=== PATIENT | male | born 1940 | race African-American/Black ===

== ENCOUNTER 2016-09-13 11:53 | Observation (INO) | payer MEDICARE ==
[~2016-09-13] VITALS: Ht 182.9 cm; Wt 83.0 kg
[~2016-09-13 11:53] MED LIST: ATIVAN1 MG PO; AVELOX; BENADRYL25 M2 PO; CEPHALEXIN500 M1 PO; CIPRO 500MG TA500 MG PO; DILTIAZEM CD300 MG PO; FLOMAX; FLOMAX 0.40.4 MG/CAP PO; HCTZ 25MG TAB25 MG PO; LISINOPRIL40 MG PO; LORTAB 5/500 501 TAB PO; NORCO 325 MG-51 TAB PO; NORVASC 10MG10 MG PO; PREDNISONE20 MG PO; PRINIVIL20 MG PO; SERTRALINE PO; ULTRAM 50MG TAB50 MG PO; ZANTAC 150MG T150 MG PO; ZOLOFT25 MG PO
[2016-09-13 12:32] LABS: BASO # 0.1 (0.0-0.2); BASO % 0.9 % (0.0-2.0); EOS # 0.3 (0.0-0.7); GRAN % 45.3 % (42.2-75.2); HEMATOCRIT 38.3 % (42.0-52.0); HEMOGLOBIN 12.8 g/dl (13.5-18.0); LYMPH # 2.7 (1.2-3.4); LYMPH % 41.1 % (20.0-51.0); MEAN CELL VOLUME 91 fl (80.0-100.0); MEAN CORPUSCULAR HEMOGLOBIN 31 pg (27.0-31.0); MEAN CORPUSCULAR HGB CONC 33 g/dl (33.0-37.0); MONO # 0.6 (0.1-0.6); MONO % 8.7 % (1.7-9.3); PLATELET COUNT 326 K/mm3 (130-400); RED BLOOD COUNT 4.19 M/mm3 (4.20-5.60); REDCELL DISTRIBUTION WIDTH-CV 12.8 % (11.5-14.5); WHITE BLOOD COUNT 6.7 K/mm3 (4.8-10.8)
[2016-09-13 12:40] LABS: PROTHROMBIN TIME 11.3 SECONDS (9.7-12.8)
[2016-09-13] MEDS ORDERED: NORVASC 10MG10 MG PO (12:47)
[2016-09-13] MEDS ORDERED: HCTZ 25MG TAB25 MG PO (12:47)
[2016-09-13] MEDS ORDERED: TYLENOL W/COD1 UDTAB PO (12:48)
[2016-09-13 12:52] LABS: ADJUSTED CALCIUM 10.1 mg/dL (8.4-10.2); ALBUMIN 4.3 gm/dL (3.5-5.0); BILIRUBIN,TOTAL 0.7 mg/dL (0.0-1.0); CALCIUM 10.3 mg/dL (8.4-10.2); CREATININE, serum 1.6 mg/dL (0.66-1.25); POTASSIUM 3.9 mmol/L (3.4-5.0); TOTAL PROTEIN 7.8 gm/dL (6.4-8.2)
[2016-09-13 13:04] LABS: TROPONIN-I 0.012 ng/mL (0.000-0.034)
[2016-09-13 16:32] VITALS: BP 150/80; PULSE 68; TEMP 98.7
[2016-09-13 19:41] VITALS: BP 129/62; PULSE 73; TEMP 98
[2016-09-14] VITALS (9 sets, daily range): BP systolic 102–153; BP diastolic 55–77; PULSE 58–85; TEMP 98–98.2
[2016-09-14 08:12] LABS: CHOLESTEROL 161 mg/dL (120-200); HDL CHOLESTEROL 46 mg/dL; LDL CHOLESTEROL 98 mg/dL; TRIGLYCERIDE 83 mg/dL
[2016-09-14 09:01] LABS: TROPONIN-I < 0.012 ng/mL (0.000-0.034)
[2016-09-14] MEDS ORDERED: ASPIRIN 32325 MG/TAB PO (16:28)
[2016-09-14] MEDS ORDERED: PLAVIX 75MG TAB75 MG PO (16:29)
[2016-09-14] MEDS ORDERED: LIPITOR20 MG PO (16:29)
[2016-09-14] MEDS ORDERED: TOPROL XL 25MG25 MG PO (16:32)
== END 2016-09-14 17:47 | disposition home or self-care (01) ==
LOC: COL.ER 11:53 → MEDICAL 14:33
PROVIDERS: Emergency Medicine; Internal Medicine
DX: R07.9 Chest pain, unspecified (principal); J98.11 Atelectasis; I12.9 Hypertensive chronic kidney disease with stage 1 through stage 4 chronic kidney disease, or unspecified chronic kidney disease; N18.9 Chronic kidney disease, unspecified; Z87.891 Personal history of nicotine dependence
CPT/HCPCS: 99223-AI; A9502; G0378; J1650; J2785; J7030; Q9967

== ENCOUNTER 2016-09-17 07:42 | Day surgery (SDC) | payer MEDICARE ==
[2016-09-17] VITALS (448 sets, daily range): BP systolic 112–156; BP diastolic 74–99; PULSE 54–66; TEMP 97.9–99; O2SAT 77–100
[~2016-09-17] VITALS: Ht 182.9 cm; Wt 83.5 kg
[~2016-09-17 07:42] MED LIST changes: +ASPIRIN 32325 MG/TAB PO; +LIPITOR20 MG PO; +PLAVIX 75MG TAB75 MG PO; +TOPROL XL 25MG25 MG PO; +TYLENOL W/COD1 UDTAB PO
[2016-09-17] MEDS ORDERED: TOPROL XL 25MG25 MG PO (08:30)
[2016-09-17 08:31] LABS: INR 1.1 (0.8-3.0); PROTHROMBIN TIME 11.8 SECONDS (9.7-12.8)
[2016-09-17] MEDS ORDERED: LIPITOR20 MG PO (08:31)
[2016-09-17] MEDS ORDERED: PLAVIX 75MG TAB75 MG PO (08:31)
[2016-09-17] MEDS ORDERED: ASPIRIN 32325 MG/TAB PO (08:32)
[2016-09-17 08:43] LABS: CALCIUM 10.4 mg/dL (8.4-10.2); CREATININE, serum 1.75 mg/dL (0.66-1.25)
[2016-09-17 08:47] LABS: HEMATOCRIT 38.4 % (42.0-52.0); HEMOGLOBIN 12.9 g/dl (13.5-18.0); MEAN CELL VOLUME 91 fl (80.0-100.0); MEAN CORPUSCULAR HEMOGLOBIN 31 pg (27.0-31.0); MEAN CORPUSCULAR HGB CONC 34 g/dl (33.0-37.0); MEAN PLATELET VOLUME 10.2 fl (7.4-10.4); PLATELET COUNT 343 K/mm3 (130-400); RED BLOOD COUNT 4.21 M/mm3 (4.20-5.60); REDCELL DISTRIBUTION WIDTH-CV 12.4 % (11.5-14.5); WHITE BLOOD COUNT 5.7 K/mm3 (4.8-10.8)
[2016-09-18] VITALS (205 sets, daily range): BP systolic 119–137; BP diastolic 71–81; PULSE 68–74; TEMP 98–98.5; O2SAT 87–100
[2016-09-18 06:25] LABS: BASO % 0.5 % (0.0-2.0); EOS # 0.2 (0.0-0.7); EOS % 2.9 % (0-4.0); GRAN % 53.3 % (42.2-75.2); HEMATOCRIT 39.9 % (42.0-52.0); HEMOGLOBIN 13.2 g/dl (13.5-18.0); LYMPH # 1.9 (1.2-3.4); LYMPH % 33.6 % (20.0-51.0); MEAN CELL VOLUME 92 fl (80.0-100.0); MEAN CORPUSCULAR HEMOGLOBIN 31 pg (27.0-31.0); MEAN CORPUSCULAR HGB CONC 33 g/dl (33.0-37.0); MONO # 0.5 (0.1-0.6); MONO % 9.5 % (1.7-9.3); PLATELET COUNT 331 K/mm3 (130-400); RED BLOOD COUNT 4.33 M/mm3 (4.20-5.60); REDCELL DISTRIBUTION WIDTH-CV 12.6 % (11.5-14.5); WHITE BLOOD COUNT 5.6 K/mm3 (4.8-10.8)
[2016-09-18 06:40] LABS: CALCIUM 10.2 mg/dL (8.4-10.2); CREATININE, serum 1.72 mg/dL (0.66-1.25)
[2016-09-18] MEDS ORDERED: ASPIRIN E.C. 8181 MG PO (08:47)
== END 2016-09-18 09:44 | disposition home or self-care (01) ==
LOC: COL.RAD 07:42 → IMCU 11:00 → COL.RAD 09-18 09:44 → IMCU 09-18 09:44
PROVIDERS: Internal Medicine Interventional Cardiology
DX: I25.10 Atherosclerotic heart disease of native coronary artery without angina pectoris (principal); I73.9 Peripheral vascular disease, unspecified; R94.39 Abnormal result of other cardiovascular function study; R07.89 Other chest pain; Z79.82 Long term (current) use of aspirin; Z79.899 Other long term (current) drug therapy; Z79.02 Long term (current) use of antithrombotics/antiplatelets
CPT/HCPCS: OP; C1725; C1760; C1769; C9600; J0583; J2250; J3010; Q9967

== ENCOUNTER 2018-03-07 21:56 | Emergency (ER) | payer MEDICARE ==
[~2018-03-07] VITALS: Ht 172.7 cm; Wt 85.9 kg
[~2018-03-07 21:56] MED LIST changes: +ASPIRIN E.C. 8181 MG PO; +LEXAPRO20 MG PO; +LIPITOR 80MG80 MG PO
[2018-03-07 22:06] VITALS: TEMP 98.4
[2018-03-07 22:52] LABS: BASO % 0.6 % (0.0-2.0); EOS # 0.1 (0.0-0.7); GRAN # 3.4 (1.4-6.5); GRAN % 51.9 % (42.2-75.2); HEMOGLOBIN 11.9 g/dl (13.5-18.0); LYMPH # 1.9 (1.2-3.4); LYMPH % 29.2 % (20.0-51.0); MEAN CELL VOLUME 92 fl (80.0-100.0); MEAN CORPUSCULAR HEMOGLOBIN 31 pg (27.0-31.0); MEAN CORPUSCULAR HGB CONC 34 g/dl (33.0-37.0); MEAN PLATELET VOLUME 9.7 fl (7.4-10.4); MONO % 15.8 % (1.7-9.3); PLATELET COUNT 415 K/mm3 (130-400); RED BLOOD COUNT 3.82 M/mm3 (4.20-5.60); REDCELL DISTRIBUTION WIDTH-CV 12.6 % (11.5-14.5)
[2018-03-07 22:53] LABS: HEMATOCRIT 35.3 % (42.0-52.0)
[2018-03-07 22:55] LABS: PROTHROMBIN TIME 11.7 SECONDS (9.7-12.8)
[2018-03-07 22:58] LABS: PARTIAL THROMBOPLASTIN TIME 39.1 SECONDS (26.0-37.0)
[2018-03-07 23:02] LABS: ALANINE AMINOTRANSFERASE 55 U/L (21-72); ALKALINE PHOSPHATASE 77 U/L (50-136); ANION GAP 11 mmol/L (7-16); AST,SGOT 52 U/L (15-37); BILIRUBIN,TOTAL 0.5 mg/dL (0.0-1.0); BLOOD UREA NITROGEN 24 mg/dL (9-20); C-REACTIVE PROTEIN 6.3 mg/dL (0.0-0.9); CALCIUM 9.8 mg/dL (8.4-10.2); CARBON DIOXIDE 27 mmol/L (22-30); CHLORIDE 101 mmol/L (98-107); CREATININE, serum 1.64 mg/dL (0.66-1.25); GLUCOSE 105 mg/dL (74-106); POTASSIUM 3.9 mmol/L (3.4-5.0); SODIUM 138 mmol/L (137-145); TOTAL PROTEIN 7.6 gm/dL (6.4-8.2)
[2018-03-07] MEDS ORDERED: DOXYCYCLINE 10100 MG PO (23:05)
[2018-03-07 23:14] LABS: TROPONIN-I < 0.012 ng/mL (0.000-0.034)
[2018-03-07 23:53] VITALS: BP 133/93; PULSE 62
== END 2018-03-07 23:50 | disposition home or self-care (01) ==
LOC: COL.ER 21:56
PROVIDERS: Emergency Medicine
DX: M79.661 Pain in right lower leg (principal); L03.115 Cellulitis of right lower limb; R60.0 Localized edema; I25.10 Atherosclerotic heart disease of native coronary artery without angina pectoris; E78.5 Hyperlipidemia, unspecified; I12.9 Hypertensive chronic kidney disease with stage 1 through stage 4 chronic kidney disease, or unspecified chronic kidney disease; N18.9 Chronic kidney disease, unspecified; N40.0 Benign prostatic hyperplasia without lower urinary tract symptoms; Z95.5 Presence of coronary angioplasty implant and graft; Z79.82 Long term (current) use of aspirin
CPT/HCPCS: J1650

== ENCOUNTER → 2018-03-09 | Outpatient (CLI) | payer MEDICARE ==
[~2018-03-09] MED LIST changes: +DOXYCYCLINE 10100 MG PO
== END ==
LOC: COL.VAS 14:00
DX: R60.0 Localized edema (principal)

== ENCOUNTER 2018-04-13 16:38 | Emergency (ER) | payer MEDICARE ==
[~2018-04-13] VITALS: Ht 172.7 cm; Wt 84.5 kg
[~2018-04-13 16:38] MED LIST changes: +AMOXICILLIN 8751 TAB PO
[2018-04-13 16:44] VITALS: BP 115/68; PULSE 73; TEMP 97.6
[2018-04-14] MEDS ORDERED: FLAGYL500 MG PO (10:35)
[2018-04-14] MEDS ORDERED: LEVAQUIN 5500 MG/TA1 PO (10:35)
== END 2018-04-13 18:30 | disposition left against medical advice (07) ==
LOC: COL.ER 16:38
DX: S91.001A Unspecified open wound, right ankle, initial encounter (principal); X58.XXXA Exposure to other specified factors, initial encounter

== ENCOUNTER 2018-04-14 09:30 | Emergency (ER) | payer MEDICARE ==
[~2018-04-14] VITALS: Ht 172.7 cm; Wt 84.5 kg
[2018-04-14 09:38] VITALS: TEMP 97.9
[2018-04-14 10:22] LABS: BASO % 0.7 % (0.0-2.0); EOS # 0.2 (0.0-0.7); EOS % 3.6 % (0-4.0); GRAN % 53.6 % (42.2-75.2); HEMOGLOBIN 11.6 g/dl (13.5-18.0); LYMPH # 1.6 (1.2-3.4); LYMPH % 28.4 % (20.0-51.0); MEAN CELL VOLUME 91 fl (80.0-100.0); MEAN CORPUSCULAR HEMOGLOBIN 30 pg (27.0-31.0); MEAN CORPUSCULAR HGB CONC 33 g/dl (33.0-37.0); MONO # 0.8 (0.1-0.6); MONO % 13.5 % (1.7-9.3); PLATELET COUNT 355 K/mm3 (130-400); RED BLOOD COUNT 3.85 M/mm3 (4.20-5.60)
[2018-04-14 10:24] LABS: HEMATOCRIT 35.1 % (42.0-52.0)
[2018-04-14] MEDS ORDERED: LEVAQUIN 5500 MG/TA1 PO (10:35)
[2018-04-14] MEDS ORDERED: FLAGYL500 MG PO (10:35)
[2018-04-14 10:41] LABS: ALBUMIN 3.7 gm/dL (3.5-5.0); BILIRUBIN,TOTAL 0.3 mg/dL (0.0-1.0); CREATININE, serum 2.03 mg/dL (0.66-1.25); TOTAL PROTEIN 7.1 gm/dL (6.4-8.2)
[2018-04-14 11:38] VITALS: BP 122/64; PULSE 70
== END 2018-04-14 11:39 | disposition home or self-care (01) ==
LOC: COL.ER 09:30
PROVIDERS: Physician Assistant
DX: S91.001A Unspecified open wound, right ankle, initial encounter (principal); N40.0 Benign prostatic hyperplasia without lower urinary tract symptoms; I12.9 Hypertensive chronic kidney disease with stage 1 through stage 4 chronic kidney disease, or unspecified chronic kidney disease; N18.9 Chronic kidney disease, unspecified; Z98.890 Other specified postprocedural states; Z79.82 Long term (current) use of aspirin; Z79.02 Long term (current) use of antithrombotics/antiplatelets
CPT/HCPCS: J7030

== ENCOUNTER → 2018-05-10 | Outpatient (CLI) | payer MEDICARE ==
[~2018-05-10] MED LIST changes: +FLAGYL500 MG PO; +LEVAQUIN 5500 MG/TA1 PO
== END ==
LOC: COL.RAD 13:03
DX: L03.90 Cellulitis, unspecified (principal); I83.013 Varicose veins of right lower extremity with ulcer of ankle

== ENCOUNTER → 2018-05-22 | Outpatient (CLI) | payer MEDICARE | LOC: ZCOL.LAB 14:30 | DX: I83.013 Varicose veins of right lower extremity with ulcer of ankle (principal) ==

== ENCOUNTER → 2019-02-19 | Outpatient (CLI) | payer MEDICARE | LOC: COL.RAD 10:30 | DX: M51.16 Intervertebral disc disorders with radiculopathy, lumbar region (principal); M47.26 Other spondylosis with radiculopathy, lumbar region; M43.16 Spondylolisthesis, lumbar region ==

== ENCOUNTER → 2019-03-28 | Outpatient (CLI) | payer MEDICARE | LOC: MHCPAIN 08:50 | DX: G89.29 Other chronic pain (principal); M47.817 Spondylosis without myelopathy or radiculopathy, lumbosacral region; M54.16 Radiculopathy, lumbar region; M53.3 Sacrococcygeal disorders, not elsewhere classified; M96.1 Postlaminectomy syndrome, not elsewhere classified | CPT/HCPCS: G0463 ==

== ENCOUNTER → 2020-09-22 | Outpatient (CLI) | payer MEDICARE ==
[~2020-09-22] MED LIST changes: +NORVASC 5MG5 MG/TAB PO
== END ==
LOC: COL.RAD
DX: D17.9 Benign lipomatous neoplasm, unspecified (principal); R22.1 Localized swelling, mass and lump, neck

== ENCOUNTER 2020-10-20 10:34 | Day surgery (SDC) | payer MEDICARE ==
[~2020-10-20] VITALS: Ht 172.7 cm; Wt 90.7 kg
[~2020-10-20 10:34] MED LIST changes: -NORVASC 5MG5 MG/TAB PO
[2020-10-20 11:10] VITALS: BP 147/81; PULSE 62; TEMP 97.7
[2020-10-20] MEDS ORDERED: NORVASC 5MG5 MG/TAB PO (11:18)
[2020-10-20] MEDS ORDERED: TYLENOL W/COD1 UDTAB PO (11:21)
--- NOTE | 2020-10-20 11:24 | NUR ---
TO RM 1 AT 1042- CALL LIGHT IN REACH DAUGHTER AT BEDSIDE.
[2020-10-20 13:57] VITALS: BP 140/81; PULSE 54
--- NOTE | 2020-10-20 13:57 | NUR ---
TO RM 1 PER CART FROM PACU. ALERT ORIENTED X3, TALKING TO STAFF AND HIS DAUGHTER. DRINKING WATER. DRESSINGS CLEAN DRY INTACT.
[2020-10-20 14:00] VITALS: BP 124/71; PULSE 86; TEMP 97.1
--- NOTE | 2020-10-20 14:00 | NUR ---
DENIES PAIN OR DISCOMFORT DENIES N/V. RECEIVED GRAPE JUICE AND CRACKERS.
[2020-10-20 14:15] VITALS: BP 134/74; PULSE 57; TEMP 97.5
--- NOTE | 2020-10-20 14:15 | NUR ---
ATE 100% AND TOLERATED WELL. PATIENT ASKING WHEN HE GO HOME.
--- NOTE | 2020-10-20 14:20 | NUR ---
AMBULATED TO BATHROOM AND VOIDED.
--- NOTE | 2020-10-20 14:30 | NUR ---
DISCONTINUED IV AND INT- CATHETER INTACT RECEIVED DISCHARGE INSTRUCTIONS PATIENT GETTING DRESSED AND DAUGHTER WENT TO GET THE CAR.
--- NOTE | 2020-10-20 14:45 | NUR ---
DISCHARGED PER WC BY NURSING STAFF TO PRIVATE CAR IN CARE OF DAUGHTER APPLE.
== END 2020-10-20 14:58 | disposition home or self-care (01) ==
LOC: SDCO 10:34
DX: D17.0 Benign lipomatous neoplasm of skin and subcutaneous tissue of head, face and neck (principal); I12.9 Hypertensive chronic kidney disease with stage 1 through stage 4 chronic kidney disease, or unspecified chronic kidney disease; N18.32 Chronic kidney disease, stage 3b; J44.9 Chronic obstructive pulmonary disease, unspecified; F32.9 Major depressive disorder, single episode, unspecified; I25.10 Atherosclerotic heart disease of native coronary artery without angina pectoris; G89.29 Other chronic pain; M54.9 Dorsalgia, unspecified; I73.9 Peripheral vascular disease, unspecified; Z87.891 Personal history of nicotine dependence; Z79.899 Other long term (current) drug therapy; Z80.8 Family history of malignant neoplasm of other organs or systems; Z79.82 Long term (current) use of aspirin; Z80.42 Family history of malignant neoplasm of prostate; Z95.818 Presence of other cardiac implants and grafts
CPT/HCPCS: J0690; J2405; J2704; J3010; J7120